=== PATIENT | male | born 1950 | race Caucasian/White ===

== ENCOUNTER 2019-07-17 20:13 | Inpatient (IN) | payer MEDICARE ==
[~2019-07-17] VITALS: Ht 172.7 cm; Wt 98.0 kg
[~2019-07-17 20:13] MED LIST: ASPIR 8181 MG PO; ATORVASTATIN CA20 MG PO; DIAZEPAM5 MG PO; DILTIAZEM 24HR180 MG PO; DIPYRIDAMOLE25 MG PO; FOLIC ACID1 MG PO; Levaquin PO; PANTOPRAZOLE SO40 MG PO; PRESERVISION A1 EACH PO; QUINAPRIL HCL20 MG PO; RESTASIS1 EACH OP; SYMBICORT 16010.2 GM; tylenol 4 PO
[2019-07-17] MEDS ORDERED: ACETAMINOPHEN 325 MG TAB PO ONE (20:45)
[2019-07-17] MEDS ORDERED: ALBUTEROL SULFATE HFA 8GM INHALATION AEROSOL INH PRN (20:45)
[2019-07-17] MEDS ORDERED: PIPER-TAZ 3.375 GM 50 ML IV ONE (20:45)
[2019-07-17 21:20] LABS: BASOPHILS # (AUTO) 0.1 (0.0-0.1); BASOPHILS % 0.6 % (0.0-1.0); EOSINOPHILS # (AUTO) 0.9 (0.0-0.4); EOSINOPHILS % 6.5 % (0.0-6.0); HEMATOCRIT 44.1 % (38.2-49.6); HEMOGLOBIN 15.4 g/dL (14.0-18.0); LYMPHOCYTES # (AUTO) 2.4 (1.0-3.2); LYMPHOCYTES % 16.6 % (18.0-39.1); MEAN CORPUSCULAR HEMOGLOBIN 32.4 pg (28-32); MEAN CORPUSCULAR HGB CONC 34.9 g/dL (31-35); MEAN CORPUSCULAR VOLUME 92.8 fL (81-99); MONOCYTES # (AUTO) 1.2 (0.2-0.8); MONOCYTES % 8.5 % (4.4-11.3); NEUTROPHILS # (AUTO) 9.6 (2.1-6.9); NEUTROPHILS % 66.8 % (38.7-80.0); PLATELET COUNT 336 x10e3/uL (140-360); RED BLOOD COUNT 4.75 x10e6/uL (4.3-5.7)
[2019-07-17 21:28] LABS: INR 0.93
[2019-07-17 21:29] LABS: PARTIAL THROMBOPLASTIN TIME 31.5 seconds (23.8-35.5)
[2019-07-17 21:39] LABS: ALANINE AMINOTRANSFERASE 37 IU/L (0-55); ALBUMIN 4.1 g/dL (3.5-5.0); ALBUMIN/GLOBULIN RATIO 1.1 (0.8-2.0); ALKALINE PHOSPHATASE 104 IU/L (40-150); ANION GAP 14.4 mmol/L (8-16); BLOOD UREA NITROGEN 7 mg/dL (7-26); BUN/CREATININE RATIO 8 (6-25); CALCIUM 9.5 mg/dL (8.4-10.2); CARBON DIOXIDE 23 mmol/L (22-29); CHLORIDE 95 mmol/L (98-107); CREATINE KINASE 598 IU/L (30-200); CREATININE, SERUM 0.89 mg/dL (0.72-1.25); EST GLOMERULAR FILTRATION RATE > 60 ML/MIN (60-); GLUCOSE 119 mg/dL (74-118); POTASSIUM 3.4 mmol/L (3.5-5.1); SODIUM 129 mmol/L (136-145)
[2019-07-17 21:48] LABS: B-TYPE NATRIURETIC PEPTIDE2 19.1 pg/mL (0-100)
[2019-07-17] MEDS ORDERED: ALBUTEROL/IPRATROPIUM 3 ML NEB NEB ONE ×2 (22:30→23:30)
--- NOTE | 2019-07-17 22:30 | NUR ---
PT TO BE ADMITTED, PT AWARE OF POC, PT VOICES NO COMPLAINTS AT THIS TIME
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
[2019-07-17] MEDS ORDERED: SODIUM CHLORIDE 0.9% 1000ML 1,000 ML IV SCH (23:26)
[2019-07-17] MEDS: ALBUTEROL/IPRATROPIUM 3 ML NEB NEB SCH (23:30)
[2019-07-18] VITALS (8 sets, daily range): BP systolic 122–172; BP diastolic 64–106
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
[2019-07-18] MEDS ORDERED: ALBUTEROL/IPRATROPIUM 3 ML NEB NEB STA (00:03)
[2019-07-18] MEDS: METHYLPREDNISOLONE SOD SUCC 40 MG/ML VIAL 1ML IV SCH ×2 (00:26→05:57)
[2019-07-18] MEDS ORDERED: MORPHINE SULFATE INJ 4 MG/ML INJ 1ML IV PRN (00:30)
[2019-07-18] MEDS ORDERED: ONDANSETRON HCL INJ 2MG/ML 2ML 2 MG/ML VIAL IV PRN ×2 (00:30→09:30)
[2019-07-18] MEDS: BENZONATATE 100 MG CAP PO PRN ×3 (01:45→21:35)
[2019-07-18] MEDS: ALBUTEROL/IPRATROPIUM 3 ML NEB NEB SCH ×2 (03:13→08:00)
[2019-07-18] MEDS ORDERED: MELATONIN3 MG PO (03:45)
[2019-07-18] MEDS ORDERED: OMEPRAZOLE40 MG PO (03:45)
[2019-07-18] MEDS ORDERED: RESTASIS1 EACH (03:45)
[2019-07-18] MEDS ORDERED: MENS ONE A DAY PO (03:45)
[2019-07-18] MEDS ORDERED: AMLODIPINE BESY10 MG PO (03:45)
[2019-07-18] MEDS ORDERED: PROAIR HFA INH8.5 GM (03:45)
[2019-07-18] MEDS ORDERED: CLARITON D PO (03:45)
[2019-07-18] MEDS ORDERED: ALEVE PM CAPLE1 EACH PO (03:45)
[2019-07-18] MEDS ORDERED: VALACYCLOVIR1000 MG (03:45)
[2019-07-18] MEDS ORDERED: GLYCOPYRROLATE2 MG (03:45)
[2019-07-18] MEDS ORDERED: FOLIC ACID PO (03:45)
--- NOTE | 2019-07-18 07:19 | NUR ---
PATIENT IN BED RESTING WITH HEAD OF BED ELEVATED, NO DISTRESS OBSERVED. O2 IN PLACE VIA N/C. BED IN LOWER POSITION, CALL LIGHT AT REACH.
[2019-07-18 07:31] LABS: BASOPHILS % 0.3 % (0.0-1.0); EOSINOPHILS % 0.3 % (0.0-6.0); HEMATOCRIT 43.6 % (38.2-49.6); HEMOGLOBIN 14.9 g/dL (14.0-18.0); LYMPHOCYTES # (AUTO) 0.8 (1.0-3.2); LYMPHOCYTES % 6.4 % (18.0-39.1); MEAN CORPUSCULAR HEMOGLOBIN 32.2 pg (28-32); MEAN CORPUSCULAR HGB CONC 34.2 g/dL (31-35); MEAN CORPUSCULAR VOLUME 94.2 fL (81-99); MONOCYTES # (AUTO) 0.1 (0.2-0.8); MONOCYTES % 0.9 % (4.4-11.3); NEUTROPHILS # (AUTO) 10.9 (2.1-6.9); NEUTROPHILS % 90.9 % (38.7-80.0); PLATELET COUNT 323 x10e3/uL (140-360); RED BLOOD COUNT 4.63 x10e6/uL (4.3-5.7); RED CELL DISTRIBUTION WIDTH 13.1 % (11.7-14.4)
[2019-07-18 07:58] LABS: ALANINE AMINOTRANSFERASE 34 IU/L (0-55); ALBUMIN/GLOBULIN RATIO 1.1 (0.8-2.0); ALKALINE PHOSPHATASE 99 IU/L (40-150); BLOOD UREA NITROGEN 8 mg/dL (7-26); BUN/CREATININE RATIO 8 (6-25); CALCIUM 9.2 mg/dL (8.4-10.2); CARBON DIOXIDE 25 mmol/L (22-29); CHLORIDE 94 mmol/L (98-107); CREATININE, SERUM 1.03 mg/dL (0.72-1.25); EST GLOMERULAR FILTRATION RATE > 60 ML/MIN (60-); GLUCOSE 160 mg/dL (74-118); SODIUM 131 mmol/L (136-145)
--- NOTE | 2019-07-18 07:59 | NUR ---
SPOKE WITH MD REGARDING ABNORMAL LAB RESULT, NO NEW ORDER RECEIVED.
--- NOTE | 2019-07-18 08:59 | Diagnostic Imaging Report ---
Chest, one view History: Bronchitis Comparison: none Findings: Calcified granuloma within the left lower lobe is consistent with previous granulomatous disease. The lungs are otherwise clear. Normal size heart. No pleural effusion or pneumothorax. Impression: No acute findings in the chest Signed by: Bobby Koch MD on 07/18/2019 8:55 AM
[2019-07-18] MEDS ORDERED: IPRATROPIUM BROMIDE 0.02% 2.5 ML NEB NEB SCH (09:15)
[2019-07-18] MEDS: LACTATED RINGER'S 1,000 ML IV SCH ×3 (10:46→19:15)
[2019-07-18] MEDS ORDERED: LACTATED RINGER'S 500 ML IV ONE (13:45)
[2019-07-18] MEDS ORDERED: ALBUTEROL SULFATE HFA 8GM INHALATION AEROSOL INH PRN (14:00)
[2019-07-18] MEDS ORDERED: IPRATROPIUM BROMIDE 0.02% 2.5 ML NEB NEB PRN (14:15)
[2019-07-18] MEDS ORDERED: ALBUTEROL SULF 0.083% NEB SOLN 3 ML NEB NEB PRN (14:15)
[2019-07-18] MEDS ORDERED: PANTOPRAZOLE 40 MG 10ML VIAL IV ONE (14:30)
--- NOTE | 2019-07-18 14:45 | Consultation ---
DATE OF CONSULTATION: Pulmonary Critical Care Consultation CHIEF COMPLAINT: Coughing and wheezing. HISTORY OF PRESENT ILLNESS: The patient is a 68-year-old man. He reports intermittent wheezing and coughing for several months. He went to see his doctor on several occasions and received antibiotics along with steroids with no improvement. He has also received Tessalon Perles and cough syrup with codeine, but has not had any improvement. The patient now complains of worsening dyspnea and wheezing. He notes persistent nonproductive cough. He denies chest pain or fevers. He has severe gastroesophageal reflux and reports heartburn that is partially controlled with omeprazole once a day. PAST MEDICAL HISTORY: 1. Gastroesophageal reflux. 2. Hypercholesterolemia. 3. No prior history of asthma or COPD. 4. No prior history of cardiac disease. 5. No prior history of diabetes. PAST SURGICAL HISTORY: Noncontributory. ALLERGIES: NO KNOWN DRUG ALLERGIES. SOCIAL HISTORY: The patient has never been a smoker. He is not a drinker. 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 FAMILY HISTORY: Family history is noncontributory. REVIEW OF SYSTEMS: There is no headache or fever. He is not having any neck pain. He does note some cough. He has wheezing and dyspnea. He has no chest pain. He has no abdominal pain. He is not having any nausea or vomiting. He has no leg edema. PHYSICAL EXAMINATION: VITAL SIGNS: The patient is afebrile. The blood pressure is 151/94 and the saturation is 95% on 3 L. The pulse is 120 and the respiratory rate is 22. HEENT: Shows no facial swelling or erythema. CARDIAC: Reveals regular rate and rhythm with normal S1, S2. LUNGS: Auscultation of lungs reveals a prolonged expiratory phase bilaterally. There is wheezing. There are some crackles at the bases. There is no rebound or guarding. EXTREMITIES: Show no leg edema or calf tenderness. There is no cyanosis or clubbing. SKIN: Shows no rashes. NEUROLOGICAL: Shows no focal abnormalities. RADIOGRAPHIC DATA: CT scan of the chest shows some bronchial inflammation suggestive of bronchitis. There is some coronary artery calcification. LABORATORY DATA: PT and PTT are within normal limits. The BUN to creatinine ratio is 8 to 1.03. The sodium is 131 and the chloride is 94. The white blood cell count is 11.9 and hemoglobin is 14.8. The platelet count is 323. IMPRESSION: 1. Acute bronchitis with coughing and wheezing. 2. Gastroesophageal reflux. 3. Hyponatremia. 4. Coronary artery disease. PLAN: 1. Continue IV antibiotics. 2. IV Solu-Medrol. 3. Bronchodilators. 4. Echocardiogram and Cardiology evaluation. 5. Control gastroesophageal reflux, which could be aggravating coughing and wheezing. Vega Khoury MD [facility]/MODL /[id number]
[2019-07-18] MEDS: METHYLPREDNISOLONE SOD SUCC 125 MG/2ML VIAL IV SCH ×2 (15:00→21:29)
--- NOTE | 2019-07-18 15:02 | NUR ---
MD IN TO SEE PATIENT, NEW ORDER RECEIVED.
[2019-07-18 16:46] LABS: CHOL/HDL RATIO 2.1 (3.9-4.7)
[2019-07-18] MEDS ORDERED: ACETAMINOPHEN 325 MG TAB PO PRN (17:00)
[2019-07-18] MEDS ORDERED: ENOXAPARIN SOD INJ 40 MG/0.4 ML SYR SC SCH (17:00)
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
[2019-07-18] MEDS: FAMOTIDINE 20 MG/2 ML VIAL IV SCH (17:28)
--- NOTE | 2019-07-18 20:03 | NUR ---
Received change of shift report from AM nurse. Walking rounds completed.
[2019-07-18] MEDS ORDERED: ATORVASTATIN 40 MG TAB PO SCH (21:00)
[2019-07-18] MEDS: MELATONIN 3 MG TAB PO SCH (21:00)
[2019-07-18] MEDS ORDERED: ATORVASTATIN 20 MG TAB PO SCH (21:00)
[2019-07-19] VITALS (9 sets, daily range): BP systolic 133–161; BP diastolic 80–99
[2019-07-19] MEDS: LACTATED RINGER'S 1,000 ML IV SCH ×3 (00:15→09:36)
[2019-07-19] MEDS: METHYLPREDNISOLONE SOD SUCC 125 MG/2ML VIAL IV SCH ×3 (06:00→21:25)
[2019-07-19 06:50] LABS: BASOPHILS % 0.3 % (0.0-1.0); HEMATOCRIT 36.8 % (38.2-49.6); HEMOGLOBIN 12.8 g/dL (14.0-18.0); LYMPHOCYTES # (AUTO) 0.9 (1.0-3.2); LYMPHOCYTES % 8.3 % (18.0-39.1); MEAN CORPUSCULAR HEMOGLOBIN 32.1 pg (28-32); MEAN CORPUSCULAR HGB CONC 34.8 g/dL (31-35); MEAN CORPUSCULAR VOLUME 92.2 fL (81-99); MONOCYTES # (AUTO) 0.6 (0.2-0.8); MONOCYTES % 5.4 % (4.4-11.3); NEUTROPHILS # (AUTO) 9.6 (2.1-6.9); NEUTROPHILS % 84.7 % (38.7-80.0); PLATELET COUNT 292 x10e3/uL (140-360); RED BLOOD COUNT 3.99 x10e6/uL (4.3-5.7); RED CELL DISTRIBUTION WIDTH 13.1 % (11.7-14.4)
--- NOTE | 2019-07-19 07:00 | NUR ---
Bed side rounds completed with the off-going nursr and the pt. denies pain or discomfort.
[2019-07-19] MEDS ORDERED: PANTOPRAZOLE SOD 40 MG TABEC PO SCH (07:30)
[2019-07-19 07:59] LABS: ANION GAP 14.6 mmol/L (8-16); BLOOD UREA NITROGEN 9 mg/dL (7-26); BUN/CREATININE RATIO 12 (6-25); CARBON DIOXIDE 24 mmol/L (22-29); CHLORIDE 99 mmol/L (98-107); CREATININE, SERUM 0.78 mg/dL (0.72-1.25); EST GLOMERULAR FILTRATION RATE > 60 ML/MIN (60-); GLUCOSE 137 mg/dL (74-118); POTASSIUM 3.6 mmol/L (3.5-5.1); SODIUM 134 mmol/L (136-145)
[2019-07-19] MEDS: FAMOTIDINE 20 MG/2 ML VIAL IV SCH ×2 (09:36→16:15)
[2019-07-19] MEDS: ASPIRIN 81 MG CHEW TAB PO SCH (09:36)
[2019-07-19] MEDS: AMLODIPINE BESYLATE 10 MG TAB PO SCH (09:36)
[2019-07-19] MEDS ORDERED: ALBUTEROL SULFATE HFA 8GM INHALATION AEROSOL INH PRN (14:00)
--- NOTE | 2019-07-19 14:14 | Progress Note ---
DATE: SUBJECTIVE: The patient still has some cough. He has less wheezing. He is not complaining of fever. PHYSICAL EXAMINATION: VITAL SIGNS: The patient is afebrile. The blood pressure is 147/93. Saturation is 95% on 2 L. The pulse is 110. HEENT: Shows no facial swelling or erythema. CARDIAC: Reveals regular rate and rhythm with normal S1, S2. LUNGS: Auscultation of lungs reveals prolonged expiratory phase, wheezing bilaterally. ABDOMEN: Soft, nontender. There is no rebound or guarding. EXTREMITIES: Shows no leg edema or calf tenderness. There is no cyanosis or clubbing. SKIN: Shows no rashes. NEUROLOGICAL: Shows no focal abnormalities. IMPRESSION: 1. Chronic bronchitis with coughing and acute exacerbation. 2. Gastroesophageal reflux. 3. Coronary artery disease. PLAN: 1. Continue IV Solu-Medrol. 2. Continue Protonix along with Pepcid for GE reflux. 3. Consider GI evaluation. 4. Await completion of echocardiogram. Vega Khoury MD [facility]/MODL /[id number]
[2019-07-19] MEDS ORDERED: MAGNESIUM SULFATE 2GM/50ML 50 ML IV ONE (15:30)
--- NOTE | 2019-07-19 15:30 | NUR ---
Dr. Farrar rounded and the pt. was ordered bedside inhaler as well as magnesium.
[2019-07-19] MEDS: PANTOPRAZOLE SOD 40 MG TABEC PO SCH (16:14)
[2019-07-19] MEDS: MELATONIN 3 MG TAB PO SCH (21:25)
--- NOTE | 2019-07-19 21:25 | NUR ---
PATIENT IS RESTING IN RECLINER AOX4, NO SIGNS OF DISTRESS NOTED. PATIENT VOICES THAT HE IS BREATHING BETTER AND ALSO VOICES NO PAIN AT THIS TIME. PATIENT BREATHING ON HIS OWN WITH AN O2 SAT OF 94, CALL LIGHT IS WITHIN EASY REACH, WILL CONTINUE TO MONITOR.
[2019-07-20] VITALS: BP 158/83
[2019-07-20 04:00] VITALS: BP 158/90
[2019-07-20] MEDS: METHYLPREDNISOLONE SOD SUCC 125 MG/2ML VIAL IV SCH ×2 (06:15→14:12)
[2019-07-20 06:17] LABS: BASOPHILS % 0.2 % (0.0-1.0); HEMOGLOBIN 13.3 g/dL (14.0-18.0); LYMPHOCYTES # (AUTO) 1.1 (1.0-3.2); LYMPHOCYTES % 9.1 % (18.0-39.1); MEAN CORPUSCULAR HEMOGLOBIN 31.8 pg (28-32); MEAN CORPUSCULAR HGB CONC 34.1 g/dL (31-35); MEAN CORPUSCULAR VOLUME 93.3 fL (81-99); MONOCYTES # (AUTO) 0.7 (0.2-0.8); MONOCYTES % 5.6 % (4.4-11.3); NEUTROPHILS % 83.4 % (38.7-80.0); PLATELET COUNT 291 x10e3/uL (140-360); RED BLOOD COUNT 4.18 x10e6/uL (4.3-5.7); RED CELL DISTRIBUTION WIDTH 13.4 % (11.7-14.4)
[2019-07-20 06:42] LABS: ANION GAP 16.4 mmol/L (8-16); BLOOD UREA NITROGEN 9 mg/dL (7-26); BUN/CREATININE RATIO 11 (6-25); CALCIUM 9.4 mg/dL (8.4-10.2); CARBON DIOXIDE 24 mmol/L (22-29); CHLORIDE 96 mmol/L (98-107); CREATINE KINASE 1254 IU/L (30-200); CREATININE, SERUM 0.82 mg/dL (0.72-1.25); EST GLOMERULAR FILTRATION RATE > 60 ML/MIN (60-); GLUCOSE 116 mg/dL (74-118); POTASSIUM 3.4 mmol/L (3.5-5.1); SODIUM 133 mmol/L (136-145)
--- NOTE | 2019-07-20 07:07 | Diagnostic Imaging Report ---
EXAMINATION: CHEST SINGLE (PORTABLE) COMPARISON: Chest x-ray 07/18/2019, CT chest 07/17/2019 INDICATION: Shortness of breath, wheezing ^BRONCHITIS ^[id number] ^0635 DISCUSSION: Frontal view of the chest obtained at 0635 hours. HEART AND MEDIASTINUM: The cardiomediastinal silhouette is unremarkable. LINES: None. LUNGS: Mildly diminished lung volumes volumes with trace left basilar atelectasis. Calcified granuloma in the inferior aspect of the left lower lobe measures 7 mm. No significant bronchial wall thickening. Vascular markings are normal. PLEURA: No pleural effusion or pneumothorax. BONES AND SOFT TISSUES: No focal osseous lesion. The soft tissues are normal. IMPRESSION: Trace left basilar atelectasis. No infiltrates. Signed by: Dr. Evangelina Pimentel MD on 07/20/2019 7:04 AM
[2019-07-20 08:00] VITALS: BP 164/95
[2019-07-20 08:09] VITALS: BP 164/95
[2019-07-20] MEDS: FAMOTIDINE 20 MG/2 ML VIAL IV SCH (09:58)
[2019-07-20] MEDS: ASPIRIN 81 MG CHEW TAB PO SCH (09:58)
[2019-07-20] MEDS: PANTOPRAZOLE SOD 40 MG TABEC PO SCH (09:58)
[2019-07-20] MEDS: AMLODIPINE BESYLATE 10 MG TAB PO SCH (09:58)
[2019-07-20] MEDS ORDERED: POTASSIUM CHLORIDE 20 MEQ TAB CR PO ONE (10:35)
--- NOTE | 2019-07-20 10:35 | NUR ---
Pt. expressed no spiritual or emotional concerns at this time. Bridge Game Director provided hospitality and information on how to reach dispatch clerk, if needed. No need to follow at this time. JOHN ZAMUDIO Bridge Game Director Spiritual Care Department O: [phone]
[2019-07-20 12:42] VITALS: BP 118/59
[2019-07-20 12:49] VITALS: BP 149/87
--- NOTE | 2019-07-20 14:18 | Progress Note ---
DATE: SUBJECTIVE: The patient is feeling better. He has less dyspnea and less cough. He has less wheezing. PHYSICAL EXAMINATION: VITAL SIGNS: The patient is afebrile. Blood pressure is 145/97, pulse is 108. HEENT: Shows no facial swelling or erythema. CARDIAC: Reveals regular rate and rhythm with normal S1, S2. There are no murmurs or rubs. LUNGS: Auscultation of lungs reveals rhonchorous breath sounds bilaterally. There is no wheezing. ABDOMEN: Soft and nontender. There is no rebound or guarding. EXTREMITIES: Show no leg edema or calf tenderness. There is no cyanosis or clubbing. SKIN: Shows no rashes. NEUROLOGICAL: Shows no focal abnormalities. IMPRESSION: 1. Gastroesophageal reflux with coughing and wheezing. 2. Chronic bronchitis with acute exacerbation. 3. Coronary artery disease. PLAN: 1. Discharge home. 2. Anti-reflux regimen. 3. Gastroesophageal reflux precautions. 4. Taper steroids. 5. Inhalers as needed. 6. Follow up with Karyn Smith. MD TITI Hartley/MAURICIO /[id number]
--- NOTE | 2019-07-20 14:20 | NUR ---
Pt discharged home at this time. Pt is aox4 and able to verbalize needs. Denies any pain at this time. 0 s/s of acute distress noted. Pt verbalized understanding of all discharge instructions and follow up appointments.
[2019-07-20] MEDS ORDERED: ATORVASTATIN 20 MG TAB PO SCH (21:00)
--- NOTE | 2019-07-20 21:00 | Discharge Summary ---
PRIMARY CARE DOCTOR: Dr. Courtney FINAL DIAGNOSIS: Severe bronchospasm with tachycardia. SECONDARY DIAGNOSES: 1. Mild systolic congestive heart failure stable compensated. 2. Mild rhabdomyolysis without kidney injury. 3. Hypertension. 4. Dehydration. CONSULTANTS: 1. Dr. Khoury, Pulmonary. 2. Dr. Waller, Cardiology. PROCEDURES/STUDIES PERFORMED: 1. Echocardiogram. 2. Chest CT which is consistent with bronchitis. HISTORY: Per [facility] HOSPITAL COURSE: The patient was admitted. It took a couple of days to finally correct severe bronchospasm. His tachycardia is slowly getting better as well. The patient was on scheduled steroids. He has probably a component of GERD as well. The patient was told to increase his PPI to twice a day. The patient was seen and examined today. The patient will go home with a Medrol Dosepak. He will follow up with his primary care doctor in one week. It took 32 minutes total to discharge this patient. CONDITION ON DISCHARGE: Improved. DISCHARGE MEDICATIONS: Please see medication reconciliation form. MD CASTILLO Leigh/MAURICIO /[id number] MTDEster
== END 2019-07-20 15:00 | disposition home or self-care (01) | DRG 202 ==
LOC: ER 20:13 → ERHOLD 23:57 → MED/SURG3 07-18 00:55 → OBSVTOIN 07-19 16:04
PROVIDERS: ADMIT Internal Medicine; ATTEND Internal Medicine
DX: J20.9 Acute bronchitis, unspecified (principal); M62.82 Rhabdomyolysis; E87.1 Hypo-osmolality and hyponatremia; I50.20 Unspecified systolic (congestive) heart failure; I50.22 Chronic systolic (congestive) heart failure; K21.9 Gastro-esophageal reflux disease without esophagitis; I11.0 Hypertensive heart disease with heart failure; J30.2 Other seasonal allergic rhinitis; E78.5 Hyperlipidemia, unspecified; Z68.32 Body mass index [BMI] 32.0-32.9, adult
CPT/HCPCS: 36415; 71045; 71250; 80048; 80053; 80061; 82550; 82553; 83036; 83605; 83880; 84443; 84484; 85025; 85610; 85730; 87040; 87400; 93005; 93306; 94640; 99284; G0378; J1650; J2270; J2405; J2543; J2920; J2930; J3475; J7030; J7120; J7121

== ENCOUNTER 2021-01-10 11:14 | Inpatient (IN) | payer MEDICARE ==
[~2021-01-10] VITALS: Ht 172.7 cm; Wt 97.5 kg
[~2021-01-10 11:14] MED LIST changes: +ALEVE PM CAPLE1 EACH PO; +AMLODIPINE BESY10 MG PO; +CLARITON D PO; +FOLIC ACID PO; +GLYCOPYRROLATE2 MG; +MELATONIN3 MG PO; +MENS ONE A DAY PO; +OMEPRAZOLE40 MG PO; +PROAIR HFA INH8.5 GM; +RESTASIS1 EACH; +VALACYCLOVIR1000 MG
[2021-01-10] MEDS ORDERED: ASPIRIN 81 MG CHEW TAB PO STA (11:44)
[2021-01-10] MEDS ORDERED: SODIUM CHLORIDE 0.9% 500ML 500 ML IV STA (11:46)
[2021-01-10] MEDS ORDERED: ONDANSETRON HCL INJ 2MG/ML 2ML 2 MG/ML VIAL IV STA ×2 (11:47→14:53)
[2021-01-10 11:57] LABS: BASOPHILS % 0.2 % (0.0-1.0); EOSINOPHILS % 0.1 % (0.0-6.0); HEMATOCRIT 42.2 % (38.2-49.6); HEMOGLOBIN 15.5 g/dL (14.0-18.0); LYMPHOCYTES # (AUTO) 1.5 (1.0-3.2); LYMPHOCYTES % 11.3 % (18.0-39.1); MEAN CORPUSCULAR HEMOGLOBIN 31.4 pg (28-32); MEAN CORPUSCULAR HGB CONC 36.7 g/dL (31-35); MEAN CORPUSCULAR VOLUME 85.6 fL (81-99); MONOCYTES % 7.4 % (4.4-11.3); NEUTROPHILS # (AUTO) 10.3 (2.1-6.9); PLATELET COUNT 401 x10e3/uL (140-360); RED BLOOD COUNT 4.93 x10e6/uL (4.3-5.7); RED CELL DISTRIBUTION WIDTH 12.8 % (11.7-14.4)
[2021-01-10 12:07] LABS: INR 0.94; PROTHROMBIN TIME 12.8 seconds (11.9-14.5)
[2021-01-10 12:08] LABS: PARTIAL THROMBOPLASTIN TIME 33.2 seconds (23.8-35.5)
[2021-01-10 12:19] LABS: ALBUMIN 4.4 g/dL (3.5-5.0); ALBUMIN/GLOBULIN RATIO 1.1 (0.8-2.0); ANION GAP 22.2 mmol/L (8-16); CALCIUM 9.7 mg/dL (8.4-10.2); CREATININE, SERUM 0.81 mg/dL (0.72-1.25)
[2021-01-10 12:23] LABS: POTASSIUM 2.2 mmol/L (3.5-5.1)
[2021-01-10] MEDS ORDERED: POTASSIUM CHLORIDE 10MEQ EA PO ONE (12:30)
[2021-01-10] MEDS ORDERED: SODIUM CHLORIDE 0.9% 50ML 50 ML ONE (13:14)
[2021-01-10] MEDS ORDERED: IOPAMIDOL 370 MG/ML 200 ML INFUS..BTL INJ ONE (13:14)
[2021-01-10 13:20] LABS: MAGNESIUM 1.3 MG/DL (1.3-2.1); PHOSPHORUS 4.2 MG/DL (2.3-4.7)
[2021-01-10] MEDS ORDERED: SODIUM CHLORIDE 452MG TAB PO ONE (14:00)
[2021-01-10 15:22] LABS: CLARITY,URINE CLEAR (CLEAR); COLOR,URINE YELLOW (YELLOW); KETONES,URINE 1+ (NEGATIVE); LEUKOCYTE ESTERASE ,URINE NEGATIVE (NEGATIVE); NITRITE,URINE NEGATIVE (NEGATIVE); PROTEIN,URINE DIPSTICK 1+ (NEGATIVE)
[2021-01-10 15:23] LABS: URINE UROBILINOGEN 0.2 mg/dL (0.2 - 1)
[2021-01-10 15:34] LABS: BACTERIA,URINE FEW /HPF; HYALINE CASTS 0-1 (0-1)
[2021-01-10 19:14] LABS: CREATINE KINASE MB 5.7 ng/mL (0-5.0)
[2021-01-10 20:00] VITALS: BP 145/93
[2021-01-10] MEDS ORDERED: ACETAMINOPHEN 325 MG TAB PO PRN (20:30)
[2021-01-10] MEDS ORDERED: ONDANSETRON HCL INJ 2MG/ML 2ML 2 MG/ML VIAL IV PRN (20:30)
[2021-01-10] MEDS ORDERED: SODIUM CHLORIDE 0.9% 1000ML 1,000 ML IV SCH (20:30)
[2021-01-10] MEDS: NON-FORMULARY MEDICATION (Cyclosporine (Restasis) 1 DROP) OU SCH (22:45)
[2021-01-10] MEDS ORDERED: POTASSIUM CHLORIDE 20MEQ/100ML 100 ML IV PRN (22:45)
[2021-01-10] MEDS ORDERED: HYDRALAZINE HCL 20 MG/ML VIAL IV PRN (22:45)
[2021-01-10] MEDS ORDERED: AMLODIPINE BESYLATE 10 MG TAB PO ONE (22:45)
[2021-01-10] MEDS ORDERED: MAGNESIUM SULFATE 2GM/50ML IV ONE (22:45)
[2021-01-10] MEDS ORDERED: MELATONIN 5 MG TABLET PO PRN (23:00)
[2021-01-10] MEDS ORDERED: ALBUTEROL/IPRATROPIUM 3 ML NEB NEB PRN (23:00)
[2021-01-11] VITALS (9 sets, daily range): BP systolic 123–148; BP diastolic 74–96
[2021-01-11 05:03] LABS: BASOPHILS % 0.2 % (0.0-1.0); EOSINOPHILS # (AUTO) 0.1 (0.0-0.4); EOSINOPHILS % 0.5 % (0.0-6.0); HEMATOCRIT 36.6 % (38.2-49.6); HEMOGLOBIN 13.7 g/dL (14.0-18.0); LYMPHOCYTES # (AUTO) 1.6 (1.0-3.2); LYMPHOCYTES % 13.5 % (18.0-39.1); MEAN CORPUSCULAR HEMOGLOBIN 31.7 pg (28-32); MEAN CORPUSCULAR HGB CONC 37.4 g/dL (31-35); MEAN CORPUSCULAR VOLUME 84.7 fL (81-99); MONOCYTES # (AUTO) 1.4 (0.2-0.8); MONOCYTES % 11.7 % (4.4-11.3); NEUTROPHILS # (AUTO) 8.5 (2.1-6.9); NEUTROPHILS % 73.3 % (38.7-80.0); PLATELET COUNT 311 x10e3/uL (140-360); RED BLOOD COUNT 4.32 x10e6/uL (4.3-5.7)
[2021-01-11 05:21] LABS: MAGNESIUM 1.4 MG/DL (1.3-2.1); PHOSPHORUS 3.1 MG/DL (2.3-4.7)
[2021-01-11 06:08] LABS: ANION GAP 19.2 mmol/L (8-16); CALCIUM 8.8 mg/dL (8.4-10.2); CREATININE, SERUM 0.72 mg/dL (0.72-1.25)
[2021-01-11] MEDS ORDERED: MAGNESIUM SULFATE 2GM/50ML 50 ML IV ONE (06:15)
[2021-01-11 06:17] LABS: POTASSIUM 2.2 mmol/L (3.5-5.1)
[2021-01-11] MEDS: KCL 20MEQ/.9 SOD CHL 1,000 ML IV SCH ×2 (06:25→08:15)
[2021-01-11] MEDS: AMLODIPINE BESYLATE 10 MG TAB PO SCH (06:26)
[2021-01-11 07:17] LABS: CREATINE KINASE MB 6.5 ng/mL (0-5.0)
[2021-01-11] MEDS ORDERED: POTASSIUM CHLORIDE 20MEQ/100ML 100 ML IV PRN (08:00)
[2021-01-11] MEDS: ASPIRIN 81 MG CHEW TAB PO SCH (08:15)
[2021-01-11] MEDS ORDERED: POTASSIUM CHLORIDE 10MEQ EA PO ONE ×2 (08:45→16:45)
[2021-01-11 09:27] LABS: OSMOLALITY,SERUM 237 mOsm/kg (278-305)
[2021-01-11 09:40] LABS: BLOOD UREA NITROGEN 7 mg/dL (7-26); GLUCOSE 106 mg/dL (74-118); SODIUM 118 mmol/L (136-145)
[2021-01-11] MEDS ORDERED: KCL 40MEQ/0.9% SOD CHL 1,000 ML IV SCH (09:45)
[2021-01-11] MEDS: NON-FORMULARY MEDICATION (Cyclosporine (Restasis) 1 DROP) OU SCH ×2 (10:53→22:45)
[2021-01-11] MEDS: CEFTRIAXONE 1 GM in SODIUM CHLORIDE 0.9% 50ML 50 ML IV SCH (10:53)
[2021-01-11] MEDS ORDERED: SODIUM CHLORIDE 452MG TAB PO ONE (12:00)
[2021-01-11] MEDS ORDERED: SODIUM CHLORIDE 1 GM TAB PO ONE ×2 (12:15→16:45)
[2021-01-11 12:54] LABS: CREATINE KINASE MB 7.9 ng/mL (0-5.0)
[2021-01-11 13:59] LABS: CREATININE,URINE RANDOM 20.28 mg/dL (63-166)
[2021-01-11 14:01] LABS: POTASSIUM,URINE 14.6 mmol/L; TOTAL PROTEIN, URINE < 6.8 mg/dL (1-14)
[2021-01-11 16:25] LABS: ANION GAP 17.6 mmol/L (8-16); CALCIUM 8.3 mg/dL (8.4-10.2); CREATININE, SERUM 0.65 mg/dL (0.72-1.25)
[2021-01-11] MEDS: ENOXAPARIN SOD INJ 40 MG/0.4 ML SYR SC SCH (16:30)
[2021-01-11] MEDS: METOCLOPRAMIDE HCL 10 MG TAB PO SCH (16:30)
[2021-01-11 16:32] LABS: POTASSIUM 2.6 mmol/L (3.5-5.1)
[2021-01-11 19:07] LABS: CALCIUM 8.2 mg/dL (8.4-10.2); CREATININE, SERUM 0.71 mg/dL (0.72-1.25)
[2021-01-11] MEDS ORDERED: ZOLPIDEM TARTRATE 5 MG TAB PO PRN (20:15)
[2021-01-11] MEDS ORDERED: MELATONIN 3 MG TAB PO SCH (21:00)
[2021-01-12] VITALS (8 sets, daily range): BP systolic 101–155; BP diastolic 43–80
[2021-01-12 01:17] LABS: ANION GAP 15.6 mmol/L (8-16); CALCIUM 8.5 mg/dL (8.4-10.2); CREATININE, SERUM 0.69 mg/dL (0.72-1.25)
[2021-01-12 01:19] LABS: POTASSIUM 2.6 mmol/L (3.5-5.1)
[2021-01-12] MEDS ORDERED: POTASSIUM CHLORIDE 10MEQ EA PO STA (01:22)
[2021-01-12] MEDS: HYDROCODONE/APAP 5MG-325MG TAB PO PRN ×3 (02:00→18:00)
[2021-01-12 05:45] LABS: BASOPHILS % 0.3 % (0.0-1.0); EOSINOPHILS # (AUTO) 0.1 (0.0-0.4); EOSINOPHILS % 0.6 % (0.0-6.0); HEMATOCRIT 39.2 % (38.2-49.6); HEMOGLOBIN 13.8 g/dL (14.0-18.0); LYMPHOCYTES # (AUTO) 1.3 (1.0-3.2); LYMPHOCYTES % 8.6 % (18.0-39.1); MEAN CORPUSCULAR HEMOGLOBIN 31.1 pg (28-32); MEAN CORPUSCULAR HGB CONC 35.2 g/dL (31-35); MEAN CORPUSCULAR VOLUME 88.3 fL (81-99); MONOCYTES # (AUTO) 1.6 (0.2-0.8); MONOCYTES % 10.6 % (4.4-11.3); NEUTROPHILS # (AUTO) 11.5 (2.1-6.9); NEUTROPHILS % 78.7 % (38.7-80.0); PLATELET COUNT 282 x10e3/uL (140-360); RED BLOOD COUNT 4.44 x10e6/uL (4.3-5.7); RED CELL DISTRIBUTION WIDTH 13.1 % (11.7-14.4)
[2021-01-12] MEDS: AMLODIPINE BESYLATE 10 MG TAB PO SCH (05:51)
[2021-01-12 06:15] LABS: MAGNESIUM 1.9 MG/DL (1.3-2.1); PHOSPHORUS 2.5 MG/DL (2.3-4.7)
[2021-01-12 06:30] LABS: ANION GAP 14.8 mmol/L (8-16); CALCIUM 8.6 mg/dL (8.4-10.2); CREATININE, SERUM 0.7 mg/dL (0.72-1.25)
[2021-01-12 06:35] LABS: POTASSIUM 2.8 mmol/L (3.5-5.1)
[2021-01-12] MEDS ORDERED: POTASSIUM CHLORIDE 10MEQ EA PO ONE (06:45)
[2021-01-12] MEDS: CEFTRIAXONE 1 GM in SODIUM CHLORIDE 0.9% 50ML 50 ML IV SCH (08:45)
[2021-01-12] MEDS: ASPIRIN 81 MG CHEW TAB PO SCH (08:45)
[2021-01-12] MEDS: METOCLOPRAMIDE HCL 10 MG TAB PO SCH ×3 (08:45→17:13)
[2021-01-12] MEDS: NON-FORMULARY MEDICATION (Cyclosporine (Restasis) 1 DROP) OU SCH ×2 (10:45→21:11)
[2021-01-12 12:40] LABS: ANION GAP 12.9 mmol/L (8-16); CALCIUM 8.1 mg/dL (8.4-10.2); CREATININE, SERUM 0.66 mg/dL (0.72-1.25)
[2021-01-12 12:51] LABS: POTASSIUM 2.9 mmol/L (3.5-5.1)
[2021-01-12] MEDS ORDERED: POTASSIUM CHLORIDE 20 MEQ TAB CR PO STA ×2 (13:02→21:17)
[2021-01-12] MEDS ORDERED: SODIUM CHLORIDE 1 GM TAB PO ONE (13:15)
[2021-01-12 17:07] LABS: ANION GAP 16.8 mmol/L (8-16); CALCIUM 8.7 mg/dL (8.4-10.2); CREATININE, SERUM 0.71 mg/dL (0.72-1.25); POTASSIUM 3.8 mmol/L (3.5-5.1)
[2021-01-12] MEDS: LOSARTAN POTASSIUM 100 MG TAB PO SCH (17:14)
[2021-01-12] MEDS: ENOXAPARIN SOD INJ 40 MG/0.4 ML SYR SC SCH (17:14)
[2021-01-12] MEDS: POTASSIUM CHLORIDE 10MEQ EA PO ONE ×2 (17:14→17:20)
[2021-01-12] MEDS: CARVEDILOL 3.125 MG TAB PO SCH (17:14)
[2021-01-12 20:33] LABS: CALCIUM 8.2 mg/dL (8.4-10.2); CREATININE, SERUM 0.68 mg/dL (0.72-1.25)
[2021-01-13] VITALS (8 sets, daily range): BP systolic 121–150; BP diastolic 71–95
[2021-01-13 06:51] LABS: BASOPHILS % 0.3 % (0.0-1.0); EOSINOPHILS # (AUTO) 0.1 (0.0-0.4); HEMATOCRIT 37.9 % (38.2-49.6); HEMOGLOBIN 13.3 g/dL (14.0-18.0); LYMPHOCYTES # (AUTO) 1.7 (1.0-3.2); LYMPHOCYTES % 16.1 % (18.0-39.1); MEAN CORPUSCULAR HEMOGLOBIN 31.4 pg (28-32); MEAN CORPUSCULAR HGB CONC 35.1 g/dL (31-35); MEAN CORPUSCULAR VOLUME 89.6 fL (81-99); MONOCYTES # (AUTO) 1.1 (0.2-0.8); MONOCYTES % 10.4 % (4.4-11.3); NEUTROPHILS # (AUTO) 7.3 (2.1-6.9); PLATELET COUNT 277 x10e3/uL (140-360); RED BLOOD COUNT 4.23 x10e6/uL (4.3-5.7); RED CELL DISTRIBUTION WIDTH 13.5 % (11.7-14.4)
[2021-01-13 07:11] LABS: ANION GAP 14.8 mmol/L (8-16); BLOOD UREA NITROGEN < 5 mg/dL (7-26); CALCIUM 8.6 mg/dL (8.4-10.2); CARBON DIOXIDE 24 mmol/L (22-29); CHLORIDE 91 mmol/L (98-107); CREATININE, SERUM 0.59 mg/dL (0.72-1.25); EST GLOMERULAR FILTRATION RATE 135 ML/MIN (60-); GLUCOSE 127 mg/dL (74-118); SODIUM 127 mmol/L (136-145)
[2021-01-13 07:19] LABS: BUN/CREATININE RATIO 8 (6-25)
[2021-01-13 07:20] LABS: POTASSIUM 2.8 mmol/L (3.5-5.1)
[2021-01-13] MEDS ORDERED: POTASSIUM CHLORIDE 20MEQ/100ML 100 ML IV ONE (08:15)
[2021-01-13] MEDS ORDERED: SODIUM CHLORIDE 0.9% 250ML 250 ML ONE (08:56)
[2021-01-13] MEDS: METOCLOPRAMIDE HCL 10 MG TAB PO SCH ×3 (09:32→16:16)
[2021-01-13] MEDS: CEFTRIAXONE 1 GM in SODIUM CHLORIDE 0.9% 50ML 50 ML IV SCH (09:33)
[2021-01-13] MEDS: CARVEDILOL 3.125 MG TAB PO SCH ×2 (09:33→16:17)
[2021-01-13] MEDS: ASPIRIN 81 MG CHEW TAB PO SCH (09:33)
[2021-01-13] MEDS: LOSARTAN POTASSIUM 100 MG TAB PO SCH ×2 (09:34→16:17)
[2021-01-13] MEDS: FOLIC ACID 1 MG TAB PO SCH (09:34)
[2021-01-13] MEDS: HYDROCODONE/APAP 5MG-325MG TAB PO PRN (09:35)
[2021-01-13] MEDS: NON-FORMULARY MEDICATION (Cyclosporine (Restasis) 1 DROP) OU SCH ×2 (10:45→20:49)
[2021-01-13] MEDS ORDERED: POTASSIUM CHLORIDE 20 MEQ TAB CR PO STA (12:42)
[2021-01-13 14:35] LABS: ANION GAP 15.9 mmol/L (8-16); CALCIUM 8.4 mg/dL (8.4-10.2); CREATININE, SERUM 0.68 mg/dL (0.72-1.25); POTASSIUM 3.9 mmol/L (3.5-5.1)
[2021-01-13] MEDS ORDERED: KETOROLAC TROMETHAMINE 30 MG/ML VIAL IV ONE (16:00)
[2021-01-13] MEDS: ENOXAPARIN SOD INJ 40 MG/0.4 ML SYR SC SCH (16:17)
[2021-01-13 21:06] LABS: ANION GAP 12.4 mmol/L (8-16); CALCIUM 8.3 mg/dL (8.4-10.2); CREATININE, SERUM 0.64 mg/dL (0.72-1.25); POTASSIUM 3.4 mmol/L (3.5-5.1)
[2021-01-13] MEDS ORDERED: SODIUM CHLORIDE 1 GM TAB PO ONE (22:00)
[2021-01-14 00:20] VITALS: BP 125/73
[2021-01-14 06:24] VITALS: BP 148/81
[2021-01-14 06:25] LABS: ANION GAP 14.2 mmol/L (8-16); BLOOD UREA NITROGEN < 5 mg/dL (7-26); CALCIUM 8.8 mg/dL (8.4-10.2); CARBON DIOXIDE 23 mmol/L (22-29); CHLORIDE 92 mmol/L (98-107); CREATININE, SERUM 0.63 mg/dL (0.72-1.25); EST GLOMERULAR FILTRATION RATE 125 ML/MIN (60-); GLUCOSE 108 mg/dL (74-118); POTASSIUM 3.2 mmol/L (3.5-5.1); SODIUM 126 mmol/L (136-145)
[2021-01-14 06:37] LABS: BUN/CREATININE RATIO 8 (6-25)
[2021-01-14] MEDS: METOCLOPRAMIDE HCL 10 MG TAB PO SCH ×3 (07:30→16:30)
[2021-01-14] MEDS: HYDROCODONE/APAP 5MG-325MG TAB PO PRN ×2 (07:32→13:40)
[2021-01-14 08:34] VITALS: BP 171/93
[2021-01-14] MEDS: CEFTRIAXONE 1 GM in SODIUM CHLORIDE 0.9% 50ML 50 ML IV SCH (08:39)
[2021-01-14] MEDS: CARVEDILOL 3.125 MG TAB PO SCH (08:39)
[2021-01-14] MEDS: FOLIC ACID 1 MG TAB PO SCH (08:39)
[2021-01-14] MEDS: ASPIRIN 81 MG CHEW TAB PO SCH (08:39)
[2021-01-14] MEDS: LOSARTAN POTASSIUM 100 MG TAB PO SCH (08:40)
[2021-01-14 08:52] VITALS: BP 171/93
[2021-01-14] MEDS ORDERED: POTASSIUM CHLORIDE 10MEQ/100ML 200 ML IV ONE (09:45)
[2021-01-14] MEDS: NON-FORMULARY MEDICATION (Cyclosporine (Restasis) 1 DROP) OU SCH (10:34)
[2021-01-14 12:32] VITALS: BP 152/85
[2021-01-14] MEDS ORDERED: KETOROLAC TROMETHAMINE 30 MG/ML VIAL IV PRN (13:15)
[2021-01-14 13:43] LABS: POTASSIUM,URINE 26.1 mmol/L
[2021-01-14] MEDS ORDERED: SODIUM CHLORIDE 1 GM TAB PO ONE (15:45)
[2021-01-14 16:41] VITALS: BP 145/79
[2021-01-14] MEDS ORDERED: CARVEDILOL 3.125 MG TAB PO SCH (17:00)
[2021-01-14 17:02] LABS: ANION GAP 13.9 mmol/L (8-16); CALCIUM 8.7 mg/dL (8.4-10.2); CREATININE, SERUM 0.65 mg/dL (0.72-1.25); POTASSIUM 3.9 mmol/L (3.5-5.1)
[2021-01-14] MEDS: ENOXAPARIN SOD INJ 40 MG/0.4 ML SYR SC SCH (17:02)
[2021-01-14] MEDS ORDERED: COREG12.5 MG PO ×2 (17:45→18:13)
[2021-01-14] MEDS ORDERED: SODIUM CHLORIDE1 GM PO ×2 (17:45→18:13)
== END 2021-01-14 18:26 | disposition home health service (06) | DRG 641 ==
LOC: ER 11:33 → ERHOLD 17:36 → MED/SURG3 20:01 → OBSVTOIN 22:48
PROVIDERS: ADMIT Internal Medicine; ATTEND Internal Medicine
DX: E87.1 Hypo-osmolality and hyponatremia (principal); E87.6 Hypokalemia; I11.0 Hypertensive heart disease with heart failure; I50.9 Heart failure, unspecified; J44.9 Chronic obstructive pulmonary disease, unspecified; E78.5 Hyperlipidemia, unspecified; K21.9 Gastro-esophageal reflux disease without esophagitis; K52.9 Noninfective gastroenteritis and colitis, unspecified; E66.01 Morbid (severe) obesity due to excess calories; Z68.32 Body mass index [BMI] 32.0-32.9, adult; Z90.49 Acquired absence of other specified parts of digestive tract; T50.2X5A Adverse effect of carbonic-anhydrase inhibitors, benzothiadiazides and other diuretics, initial encounter; Z82.49 Family history of ischemic heart disease and other diseases of the circulatory system; D64.9 Anemia, unspecified; E86.0 Dehydration; E83.42 Hypomagnesemia; E83.51 Hypocalcemia; M25.462 Effusion, left knee; Z20.822 Contact with and (suspected) exposure to COVID-19
CPT/HCPCS: 36415; 71045; 74018; 74177; 80048; 80053; 81001; 82550; 82553; 82570; 82607; 82746; 82947; 83690; 83735; 83880; 83935; 84100; 84133; 84156; 84295; 84300; 84443; 84484; 84520; 84550; 85025; 85610; 85730; 93005; 93306; 99251; 99284; J0696; J1650; J1885; J2405; J3475; J3480; J7030; J7040; J7050; Q9967; U0002

== ENCOUNTER 2022-03-16 11:32 | Inpatient (IN) | payer MEDICARE ==
[~2022-03-16] VITALS: Ht 172.7 cm; Wt 97.5 kg
[~2022-03-16 11:32] MED LIST changes: +COREG12.5 MG PO; +SODIUM CHLORIDE1 GM PO
[2022-03-16] MEDS ORDERED: MULTIVITAMINS- 12 INJECTION 10 ML, FOLIC ACID MDV 1 MG, THIAMINE HCL INJ 100 MG in SODI... IV ONE (11:45)
[2022-03-16 11:58] LABS: BASOPHILS % 0.1 % (0.0-1.0); EOSINOPHILS % 0.1 % (0.0-6.0); HEMATOCRIT 36.1 % (38.2-49.6); LYMPHOCYTES # (AUTO) 1.1 (1.0-3.2); LYMPHOCYTES % 7.2 % (18.0-39.1); MEAN CORPUSCULAR HEMOGLOBIN 30.4 pg (28-32); MEAN CORPUSCULAR HGB CONC 33.2 g/dL (31-35); MEAN CORPUSCULAR VOLUME 91.4 fL (81-99); MONOCYTES # (AUTO) 1.8 (0.2-0.8); MONOCYTES % 11.3 % (4.4-11.3); NEUTROPHILS # (AUTO) 12.4 (2.1-6.9); NEUTROPHILS % 79.8 % (38.7-80.0); PLATELET COUNT 422 x10e3/uL (140-360); RED BLOOD COUNT 3.95 x10e6/uL (4.3-5.7); RED CELL DISTRIBUTION WIDTH 13.9 % (11.7-14.4)
[2022-03-16 12:12] LABS: INR 1.19; PARTIAL THROMBOPLASTIN TIME 39.3 seconds (23.8-35.5)
[2022-03-16 12:17] LABS: MAGNESIUM 1.1 MG/DL (1.3-2.1)
[2022-03-16 12:19] LABS: ALBUMIN/GLOBULIN RATIO 1.4 (0.8-2.0); ANION GAP 23.3 mmol/L (8-16); CALCIUM 8.5 mg/dL (8.4-10.2); CREATININE, SERUM 2.96 mg/dL (0.72-1.25); POTASSIUM 3.3 mmol/L (3.5-5.1)
[2022-03-16] MEDS ORDERED: MAGNESIUM SULFATE 2GM/50ML 50 ML IV ONE (12:30)
[2022-03-16 12:41] LABS: CLARITY,URINE CLEAR (CLEAR); COLOR,URINE YELLOW (YELLOW); KETONES,URINE TRACE (NEGATIVE); LEUKOCYTE ESTERASE ,URINE NEGATIVE (NEGATIVE); NITRITE,URINE NEGATIVE (NEGATIVE); PROTEIN,URINE DIPSTICK 1+ (NEGATIVE); URINE UROBILINOGEN 0.2 mg/dL (0.2 - 1)
[2022-03-16 12:49] LABS: RBC,URINE 0-5 /HPF (0-5)
[2022-03-16 12:50] LABS: BACTERIA,URINE MODERATE /HPF; EPITHELIAL CELLS,URINE MANY /LPF
[2022-03-16 12:53] LABS: HYALINE CASTS 0-1 (0-1)
[2022-03-16] MEDS: POTASSIUM CHLORIDE 10MEQ/100ML 100 ML IV SCH (13:00)
[2022-03-16] MEDS ORDERED: CEFTRIAXONE 1 GM VIAL IV ONE (14:15)
[2022-03-16] MEDS ORDERED: SODIUM CHLORIDE 0.9% IV ONE (14:15)
[2022-03-16 18:14] VITALS: BP 103/70
[2022-03-16 18:20] VITALS: BP 103/70
[2022-03-16 20:00] VITALS: BP 133/77
[2022-03-16 20:30] VITALS: BP 103/70
[2022-03-16] MEDS: SODIUM CHLORIDE 0.9% 1000ML 1,000 ML IV SCH (22:00)
[2022-03-16] MEDS: HEPARIN SOD (PORCINE) 5,000 UNIT/ML VIAL SC SCH (22:11)
[2022-03-17] VITALS (8 sets, daily range): BP systolic 108–139; BP diastolic 53–84
[2022-03-17] MEDS ORDERED: LYRICA100 MG PO (02:04)
[2022-03-17] MEDS ORDERED: TOPIRAMATE25 MG PO (02:04)
[2022-03-17] MEDS ORDERED: BUPROPION XL150 MG PO (02:04)
[2022-03-17] MEDS ORDERED: CHLORDIAZEPOXID25 MG PO (02:04)
[2022-03-17] MEDS ORDERED: PHENTERMINE H37.5 MG (02:04)
[2022-03-17] MEDS ORDERED: ATORVASTATIN CA40 MG PO (02:04)
[2022-03-17] MEDS ORDERED: ULTRAM 50MG50 MG PO (02:04)
[2022-03-17] MEDS ORDERED: LEVALBUTEROL TA15 GM (02:04)
[2022-03-17] MEDS ORDERED: ADVAIR 250-501 EACH INH (02:04)
[2022-03-17] MEDS ORDERED: FLUCONAZOLE100 MG PO (02:04)
[2022-03-17] MEDS ORDERED: FLONASE ALLERG9.9 ML INH (02:04)
[2022-03-17] MEDS ORDERED: LISINOPRIL10 MG PO (02:04)
[2022-03-17] MEDS: SODIUM CHLORIDE 0.9% 1000ML 1,000 ML IV SCH ×3 (05:26→20:06)
[2022-03-17 05:45] LABS: BASOPHILS % 0.4 % (0.0-1.0); HEMATOCRIT 28.4 % (38.2-49.6); LYMPHOCYTES # (AUTO) 0.9 (1.0-3.2); LYMPHOCYTES % 8.5 % (18.0-39.1); MEAN CORPUSCULAR HEMOGLOBIN 30.7 pg (28-32); MEAN CORPUSCULAR HGB CONC 35.2 g/dL (31-35); MEAN CORPUSCULAR VOLUME 87.1 fL (81-99); MONOCYTES # (AUTO) 1.5 (0.2-0.8); NEUTROPHILS # (AUTO) 8.2 (2.1-6.9); NEUTROPHILS % 75.9 % (38.7-80.0); PLATELET COUNT 336 x10e3/uL (140-360); RED BLOOD COUNT 3.26 x10e6/uL (4.3-5.7); RED CELL DISTRIBUTION WIDTH 14.2 % (11.7-14.4)
[2022-03-17 06:39] LABS: ALBUMIN 3.3 g/dL (3.5-5.0); ALBUMIN/GLOBULIN RATIO 1.1 (0.8-2.0); ANION GAP 20.2 mmol/L (8-16); CALCIUM 8.1 mg/dL (8.4-10.2); CREATININE, SERUM 1.43 mg/dL (0.72-1.25); MAGNESIUM 1.7 MG/DL (1.3-2.1)
[2022-03-17 06:44] LABS: POTASSIUM 2.2 mmol/L (3.5-5.1)
[2022-03-17] MEDS ORDERED: POTASSIUM CHLORIDE 10MEQ EA PO ONE (08:00)
[2022-03-17 08:10] LABS: THYROID STIMULATING HORMONE 0.589 uIU/mL (0.350-4.940)
[2022-03-17] MEDS: POTASSIUM CHLORIDE 10MEQ/100ML 100 ML IV SCH ×3 (08:31→12:41)
[2022-03-17] MEDS: HEPARIN SOD (PORCINE) 5,000 UNIT/ML VIAL SC SCH ×2 (08:36→20:10)
[2022-03-17] MEDS: ACETAMINOPHEN 325 MG TAB PO PRN (10:20)
[2022-03-17] MEDS ORDERED: KETOROLAC TROMETHAMINE 30 MG/ML VIAL IV ONE (12:00)
[2022-03-17] MEDS: ALBUTEROL SULFATE HFA 8GM INHALATION AEROSOL INH SCH ×2 (12:30→19:00)
[2022-03-17] MEDS: FAMOTIDINE 20 MG TAB PO SCH (13:38)
[2022-03-17] MEDS: TRAMADOL HCL 50 MG TAB PO PRN (13:46)
[2022-03-17] MEDS: DEXAMETHASONE SOD PHOS INJ 4 MG/ML SDV IV SCH ×2 (18:00→23:09)
[2022-03-17] MEDS: SALMETEROL/FLUTICASONE 250/50 INH SCH (19:00)
[2022-03-17] MEDS ORDERED: LACTATED RINGER'S 1,000 ML INJ ONE (20:45)
[2022-03-17] MEDS ORDERED: ENOXAPARIN 30 MG/0.3 ML SYR SC SCH (21:00)
[2022-03-18] VITALS (7 sets, daily range): BP systolic 150–163; BP diastolic 80–98
[2022-03-18] MEDS: ALBUTEROL SULFATE HFA 8GM INHALATION AEROSOL INH SCH ×4 (01:00→19:00)
[2022-03-18] MEDS: DEXAMETHASONE SOD PHOS INJ 4 MG/ML SDV IV SCH ×3 (05:21→16:36)
[2022-03-18 05:51] LABS: BASOPHILS % 0.2 % (0.0-1.0); HEMATOCRIT 30.4 % (38.2-49.6); HEMOGLOBIN 10.1 g/dL (14.0-18.0); LYMPHOCYTES # (AUTO) 0.4 (1.0-3.2); LYMPHOCYTES % 5.9 % (18.0-39.1); MEAN CORPUSCULAR HEMOGLOBIN 30.2 pg (28-32); MEAN CORPUSCULAR HGB CONC 33.2 g/dL (31-35); MONOCYTES # (AUTO) 0.3 (0.2-0.8); MONOCYTES % 3.8 % (4.4-11.3); NEUTROPHILS # (AUTO) 5.9 (2.1-6.9); NEUTROPHILS % 89.3 % (38.7-80.0); PLATELET COUNT 364 x10e3/uL (140-360); RED BLOOD COUNT 3.34 x10e6/uL (4.3-5.7)
[2022-03-18 06:05] LABS: INR 1.2; PROTHROMBIN TIME 15.4 seconds (11.9-14.5)
[2022-03-18 06:06] LABS: PARTIAL THROMBOPLASTIN TIME 46.3 seconds (23.8-35.5)
[2022-03-18 06:32] LABS: ALBUMIN 3.2 g/dL (3.5-5.0); ANION GAP 17.8 mmol/L (8-16); CALCIUM 8.4 mg/dL (8.4-10.2); CREATININE, SERUM 0.9 mg/dL (0.72-1.25); POTASSIUM 2.8 mmol/L (3.5-5.1)
[2022-03-18] MEDS: SALMETEROL/FLUTICASONE 250/50 INH SCH ×2 (07:00→19:00)
[2022-03-18] MEDS: FAMOTIDINE 20 MG TAB PO SCH (07:56)
[2022-03-18] MEDS: TRAMADOL HCL 50 MG TAB PO PRN ×2 (07:57→15:43)
[2022-03-18] MEDS: POTASSIUM CHLORIDE 20MEQ/100ML 100 ML IV SCH ×2 (08:50→13:13)
[2022-03-18] MEDS: CARVEDILOL 12.5 MG TAB PO SCH ×2 (08:52→16:36)
[2022-03-18] MEDS: LISINOPRIL 20 MG TAB PO SCH ×2 (08:53→20:15)
[2022-03-18] MEDS: HEPARIN SOD (PORCINE) 5,000 UNIT/ML VIAL SC SCH ×2 (08:54→20:16)
[2022-03-18] MEDS ORDERED: POTASSIUM CHLORIDE 20 MEQ TAB CR PO ONE ×2 (09:00→19:55)
[2022-03-18] MEDS ORDERED: ASPIRIN 325 MG TAB PO SCH (09:00)
[2022-03-18] MEDS ORDERED: SUMATRIPTAN SUCCINATE 25 MG TAB PO ONE (12:00)
[2022-03-18] MEDS ORDERED: SODIUM CHLORIDE 0.9% 250ML 250 ML ONE (12:31)
[2022-03-18 17:27] LABS: ANION GAP 16.4 mmol/L (8-16); CALCIUM 8.7 mg/dL (8.4-10.2); CREATININE, SERUM 0.85 mg/dL (0.72-1.25); POTASSIUM 3.4 mmol/L (3.5-5.1)
[2022-03-18] MEDS ORDERED: MAGNESIUM SULFATE 2GM/50ML 50 ML IV ONE (19:30)
[2022-03-18] MEDS: SODIUM CHLORIDE 0.9% 1000ML 1,000 ML IV SCH (19:37)
[2022-03-19] VITALS (8 sets, daily range): BP systolic 143–168; BP diastolic 88–99
[2022-03-19] MEDS: DEXAMETHASONE SOD PHOS INJ 4 MG/ML SDV IV SCH ×4 (00:38→15:51)
[2022-03-19] MEDS: ALBUTEROL SULFATE HFA 8GM INHALATION AEROSOL INH SCH ×4 (01:00→20:05)
[2022-03-19 06:15] LABS: HEMATOCRIT 30.6 % (38.2-49.6); HEMOGLOBIN 10.3 g/dL (14.0-18.0); LYMPHOCYTES # (AUTO) 0.5 (1.0-3.2); LYMPHOCYTES % 10.7 % (18.0-39.1); MEAN CORPUSCULAR HEMOGLOBIN 30.7 pg (28-32); MEAN CORPUSCULAR HGB CONC 33.7 g/dL (31-35); MEAN CORPUSCULAR VOLUME 91.1 fL (81-99); MONOCYTES # (AUTO) 0.4 (0.2-0.8); MONOCYTES % 7.1 % (4.4-11.3); NEUTROPHILS # (AUTO) 4.1 (2.1-6.9); NEUTROPHILS % 81.4 % (38.7-80.0); PLATELET COUNT 417 x10e3/uL (140-360); RED BLOOD COUNT 3.36 x10e6/uL (4.3-5.7); RED CELL DISTRIBUTION WIDTH 14.1 % (11.7-14.4)
[2022-03-19 06:39] LABS: ALBUMIN 3.2 g/dL (3.5-5.0); ALBUMIN/GLOBULIN RATIO 0.9 (0.8-2.0); ANION GAP 18.1 mmol/L (8-16); CALCIUM 8.7 mg/dL (8.4-10.2); CREATININE, SERUM 0.8 mg/dL (0.72-1.25); POTASSIUM 3.1 mmol/L (3.5-5.1)
[2022-03-19] MEDS: SALMETEROL/FLUTICASONE 250/50 INH SCH ×2 (07:00→20:05)
[2022-03-19 07:05] LABS: THYROID STIMULATING HORMONE 0.313 uIU/mL (0.350-4.940)
[2022-03-19] MEDS: LISINOPRIL 20 MG TAB PO SCH ×2 (08:24→21:44)
[2022-03-19] MEDS: FAMOTIDINE 20 MG TAB PO SCH (08:24)
[2022-03-19] MEDS: CARVEDILOL 12.5 MG TAB PO SCH ×2 (08:24→15:53)
[2022-03-19] MEDS ORDERED: POTASSIUM CHLORIDE 20MEQ/100ML 100 ML IV SCH (09:00)
[2022-03-19] MEDS ORDERED: REGADENOSON 0.4 MG/5 ML SYR IV ONE (09:15)
[2022-03-19] MEDS ORDERED: POTASSIUM CHLORIDE 20 MEQ TAB CR PO ONE (09:15)
[2022-03-19] MEDS ORDERED: POTASSIUM CHLORIDE 10MEQ EA PO ONE (11:00)
[2022-03-19] MEDS: HEPARIN SOD (PORCINE) 5,000 UNIT/ML VIAL SC SCH (11:24)
[2022-03-19] MEDS: SODIUM CHLORIDE 0.9% 1000ML 1,000 ML IV SCH (15:35)
[2022-03-19] MEDS: TRAMADOL HCL 50 MG TAB PO PRN (15:52)
[2022-03-19] MEDS ORDERED: MAGNESIUM SULFATE 2GM/50ML 50 ML IV ONE (17:30)
[2022-03-19] MEDS: POTASSIUM CHLORIDE 20 MEQ TAB CR PO SCH ×2 (17:48→21:44)
[2022-03-19] MEDS: ONDANSETRON HCL INJ 2MG/ML 2ML 2 MG/ML VIAL IV PRN (18:53)
[2022-03-19] MEDS: Morphine 4mg INJECTION 4 MG/ML INJ IV PRN (18:53)
[2022-03-19] MEDS ORDERED: KCL 40MEQ/0.9% SOD CHL 1,000 ML IV ONE (23:55)
[2022-03-20] MEDS: ALBUTEROL SULFATE HFA 8GM INHALATION AEROSOL INH SCH ×4 (01:00→19:00)
[2022-03-20] MEDS: POTASSIUM CHLORIDE 20 MEQ TAB CR PO SCH (02:06)
[2022-03-20 04:00] VITALS: BP 141/85
[2022-03-20 05:52] LABS: HEMOGLOBIN 10.4 g/dL (14.0-18.0); LYMPHOCYTES # (AUTO) 0.5 (1.0-3.2); LYMPHOCYTES % 10.5 % (18.0-39.1); MEAN CORPUSCULAR HEMOGLOBIN 30.4 pg (28-32); MEAN CORPUSCULAR HGB CONC 34.7 g/dL (31-35); MEAN CORPUSCULAR VOLUME 87.7 fL (81-99); MONOCYTES # (AUTO) 0.4 (0.2-0.8); MONOCYTES % 8.2 % (4.4-11.3); NEUTROPHILS # (AUTO) 4.1 (2.1-6.9); NEUTROPHILS % 80.1 % (38.7-80.0); PLATELET COUNT 421 x10e3/uL (140-360); RED BLOOD COUNT 3.42 x10e6/uL (4.3-5.7); RED CELL DISTRIBUTION WIDTH 14.3 % (11.7-14.4)
[2022-03-20] MEDS: DEXAMETHASONE SOD PHOS INJ 4 MG/ML SDV IV SCH ×4 (05:53→20:59)
[2022-03-20 06:11] LABS: INR 1.18; PROTHROMBIN TIME 15.2 seconds (11.9-14.5)
[2022-03-20 06:12] LABS: PARTIAL THROMBOPLASTIN TIME 36.9 seconds (23.8-35.5)
[2022-03-20 06:19] LABS: ANION GAP 14.6 mmol/L (8-16); CALCIUM 8.5 mg/dL (8.4-10.2); CREATININE, SERUM 0.77 mg/dL (0.72-1.25); POTASSIUM 4.6 mmol/L (3.5-5.1)
[2022-03-20 06:22] LABS: ALBUMIN 3.3 g/dL (3.5-5.0); BILIRUBIN,DIRECT 0.2 mg/dL (0.0-0.5)
[2022-03-20] MEDS: LEVALBUTEROL 15 GM AERO IH PRN ×2 (07:10→19:45)
[2022-03-20] MEDS: SALMETEROL/FLUTICASONE 250/50 INH SCH ×2 (07:10→19:45)
[2022-03-20] MEDS: FAMOTIDINE 20 MG TAB PO SCH (07:30)
[2022-03-20] MEDS ORDERED: Vancomycin IV 1 GM VIAL ONE (07:40)
[2022-03-20] MEDS ORDERED: THROMBIN FOR SOLN 5,000 UNIT VIAL ONE (07:40)
[2022-03-20] MEDS ORDERED: LIDOCAINE HCL/EPINEPHRINE/PF 10 ML VIAL ONE (07:40)
[2022-03-20] MEDS: ONDANSETRON HCL INJ 2MG/ML 2ML 2 MG/ML VIAL IV PRN ×2 (07:57→13:28)
[2022-03-20] MEDS: Morphine 4mg INJECTION 4 MG/ML INJ IV PRN ×2 (08:00→13:28)
[2022-03-20] MEDS: LISINOPRIL 20 MG TAB PO SCH ×2 (08:29→20:59)
[2022-03-20] MEDS: CARVEDILOL 12.5 MG TAB PO SCH ×2 (08:29→15:51)
[2022-03-20 08:33] VITALS: BP 148/83
[2022-03-20 09:45] VITALS: BP 148/83
[2022-03-20] MEDS ORDERED: HEPARIN SOD/SOD CHLORIDE 1,000 ML ONE (11:04)
[2022-03-20] MEDS ORDERED: ACETAMINOPHEN 1000 MG/100 ML 100 ML IV ONE (11:49)
[2022-03-20] MEDS ORDERED: ACETAMINOPHEN 325 MG TAB PO PRN (12:30)
[2022-03-20] MEDS ORDERED: PROMETHAZINE HCL (IM) 25 MG/ML VIAL IM PRN (12:30)
[2022-03-20] MEDS ORDERED: Morphine 4mg INJECTION 4 MG/ML INJ IM PRN (12:30)
[2022-03-20] MEDS ORDERED: HYDROMORPHONE 2MG/ML 2 MG/ML ML IV PRN (12:30)
[2022-03-20] MEDS ORDERED: ONDANSETRON HCL INJ 2MG/ML 2ML 2 MG/ML VIAL ONE (12:42)
[2022-03-20] MEDS ORDERED: SEVOFLURANE INHAL SOLN 250 ML PEN BTL ONE (12:42)
[2022-03-20] MEDS ORDERED: ROCURONIUM BROMIDE 10 MG/ML 5ML VIAL IV ONE (12:42)
[2022-03-20] MEDS ORDERED: PROPOFOL IV EMULSION 10 MG/ML 20 ML VIAL ONE (12:42)
[2022-03-20] MEDS ORDERED: POVIDONE IODINE 0.05% 0.05 % ML PO ONE (12:42)
[2022-03-20] MEDS ORDERED: DEXAMETHASONE SOD PHOS INJ 4 MG/ML SDV ONE (12:42)
[2022-03-20] MEDS ORDERED: NEOSTIGMINE 1 MG/ML 10ML VIAL ONE (12:42)
[2022-03-20] MEDS ORDERED: LIDOCAINE HCL 2% LOCAL INJ 5 ML SDV VIAL INJ ONE (12:42)
[2022-03-20] MEDS ORDERED: GLYCOPYRROLATE INJ 0.2 MG/ML VIAL ONE (12:42)
[2022-03-20] MEDS ORDERED: FENTANYL CITRATE/PF 100MCG/2 ML INJ ONE (13:15)
[2022-03-20] MEDS: LACTATED RINGER'S 1,000 ML IV SCH ×2 (13:16→20:59)
[2022-03-20] MEDS: OXYCODONE/ACETAMINOPHEN 5-325 1 EACH TABLET PO PRN ×2 (15:49→15:50)
[2022-03-20 16:17] VITALS: BP 152/96
[2022-03-20] MEDS: MAGNESIUM/ALUMINUM/SIMETHICONE 30 ML UDC PO PRN (19:57)
[2022-03-20 20:00] VITALS: BP 164/98
[2022-03-20 21:00] VITALS: BP 171/96
[2022-03-20] MEDS ORDERED: CLONIDINE HCL 0.1 MG TAB PO PRN (23:15)
[2022-03-20] MEDS ORDERED: DIPHENHYDRAMINE HCL 25 MG CAP PO PRN (23:15)
[2022-03-20] MEDS: TAMSULOSIN HCL 0.4 MG CAP PO SCH (23:37)
[2022-03-21] VITALS: BP 159/101
[2022-03-21] MEDS: ALBUTEROL SULFATE HFA 8GM INHALATION AEROSOL INH SCH ×4 (01:00→19:00)
[2022-03-21] MEDS: DEXAMETHASONE SOD PHOS INJ 4 MG/ML SDV IV SCH ×3 (05:33→22:19)
[2022-03-21] MEDS: LACTATED RINGER'S 1,000 ML IV SCH ×3 (05:33→22:20)
[2022-03-21 05:50] LABS: BASOPHILS % 0.1 % (0.0-1.0); HEMATOCRIT 29.4 % (38.2-49.6); LYMPHOCYTES % 13.7 % (18.0-39.1); MEAN CORPUSCULAR VOLUME 88.3 fL (81-99); MONOCYTES # (AUTO) 0.9 (0.2-0.8); MONOCYTES % 12.2 % (4.4-11.3); NEUTROPHILS # (AUTO) 5.3 (2.1-6.9); NEUTROPHILS % 73.2 % (38.7-80.0); PLATELET COUNT 388 x10e3/uL (140-360); RED BLOOD COUNT 3.33 x10e6/uL (4.3-5.7); RED CELL DISTRIBUTION WIDTH 14.3 % (11.7-14.4)
[2022-03-21 06:32] LABS: ANION GAP 14.9 mmol/L (8-16); CALCIUM 8.4 mg/dL (8.4-10.2); CREATININE, SERUM 0.76 mg/dL (0.72-1.25); POTASSIUM 3.9 mmol/L (3.5-5.1)
[2022-03-21 06:50] LABS: ALBUMIN 2.6 g/dL (3.5-5.0); BILIRUBIN,DIRECT 0.3 mg/dL (0.0-0.5)
[2022-03-21] MEDS: SALMETEROL/FLUTICASONE 250/50 INH SCH ×2 (07:00→19:00)
[2022-03-21] MEDS: LISINOPRIL 20 MG TAB PO SCH ×2 (08:57→22:19)
[2022-03-21] MEDS: FAMOTIDINE 20 MG TAB PO SCH (08:57)
[2022-03-21] MEDS: ONDANSETRON HCL INJ 2MG/ML 2ML 2 MG/ML VIAL IV PRN (08:58)
[2022-03-21] MEDS: CARVEDILOL 12.5 MG TAB PO SCH ×2 (08:58→16:26)
[2022-03-21] MEDS: OXYCODONE/ACETAMINOPHEN 5-325 1 EACH TABLET PO PRN ×2 (09:02→17:55)
[2022-03-21 09:07] VITALS: BP 126/64
[2022-03-21 09:31] VITALS: BP 126/64
[2022-03-21] MEDS: MAGNESIUM/ALUMINUM/SIMETHICONE 30 ML UDC PO PRN (10:33)
[2022-03-21] MEDS: PANTOPRAZOLE SOD 40 MG TABEC PO SCH (11:41)
[2022-03-21 12:31] VITALS: BP 141/95
[2022-03-21] MEDS: THIAMINE HCL 100 MG TAB PO SCH (16:25)
[2022-03-21] MEDS: SUCRALFATE 1 GM/10 ML SUSP NG SCH ×2 (16:25→22:18)
[2022-03-21 16:58] VITALS: BP 135/77
[2022-03-21 20:20] VITALS: BP 135/77
[2022-03-21] MEDS ORDERED: TEMAZEPAM 15 MG CAP PO PRN (21:00)
[2022-03-21] MEDS: TAMSULOSIN HCL 0.4 MG CAP PO SCH (22:18)
[2022-03-22] VITALS (7 sets, daily range): BP systolic 140–186; BP diastolic 85–115
[2022-03-22] MEDS: ALBUTEROL SULFATE HFA 8GM INHALATION AEROSOL INH SCH ×4 (01:00→20:40)
[2022-03-22] MEDS: LEVALBUTEROL 15 GM AERO IH PRN ×2 (06:36→17:17)
[2022-03-22] MEDS: DEXAMETHASONE SOD PHOS INJ 4 MG/ML SDV IV SCH (06:48)
[2022-03-22] MEDS: LACTATED RINGER'S 1,000 ML IV SCH (06:48)
[2022-03-22] MEDS: SALMETEROL/FLUTICASONE 250/50 INH SCH ×2 (07:00→20:40)
[2022-03-22] MEDS: PANTOPRAZOLE SOD 40 MG TABEC PO SCH (08:44)
[2022-03-22] MEDS: FAMOTIDINE 20 MG TAB PO SCH (08:44)
[2022-03-22] MEDS: THIAMINE HCL 100 MG TAB PO SCH (08:44)
[2022-03-22] MEDS: SUCRALFATE 1 GM/10 ML SUSP NG SCH ×4 (08:44→20:27)
[2022-03-22] MEDS: CARVEDILOL 12.5 MG TAB PO SCH ×3 (08:45→20:27)
[2022-03-22] MEDS: LISINOPRIL 20 MG TAB PO SCH ×2 (08:45→20:27)
[2022-03-22] MEDS: OXYCODONE/ACETAMINOPHEN 5-325 1 EACH TABLET PO PRN ×2 (11:04→15:35)
[2022-03-22] MEDS: TAMSULOSIN HCL 0.4 MG CAP PO SCH (20:27)
[2022-03-22] MEDS: MELATONIN 5 MG TABLET PO PRN (21:20)
[2022-03-23] VITALS (7 sets, daily range): BP systolic 124–162; BP diastolic 85–98
[2022-03-23] MEDS: ACETAMINOPHEN 325 MG TAB PO PRN (00:30)
[2022-03-23] MEDS: ALBUTEROL SULFATE HFA 8GM INHALATION AEROSOL INH SCH ×4 (00:45→19:10)
[2022-03-23] MEDS: OXYCODONE/ACETAMINOPHEN 5-325 1 EACH TABLET PO PRN (04:50)
[2022-03-23] MEDS: SALMETEROL/FLUTICASONE 250/50 INH SCH ×2 (08:05→19:10)
[2022-03-23] MEDS: LEVALBUTEROL 15 GM AERO IH PRN (08:06)
[2022-03-23] MEDS: PANTOPRAZOLE SOD 40 MG TABEC PO SCH (08:51)
[2022-03-23] MEDS: FAMOTIDINE 20 MG TAB PO SCH (08:51)
[2022-03-23] MEDS: SUCRALFATE 1 GM/10 ML SUSP NG SCH ×4 (08:51→21:00)
[2022-03-23] MEDS: THIAMINE HCL 100 MG TAB PO SCH (08:52)
[2022-03-23] MEDS: CARVEDILOL 12.5 MG TAB PO SCH ×2 (08:52→17:07)
[2022-03-23] MEDS: LISINOPRIL 20 MG TAB PO SCH ×2 (08:52→21:00)
[2022-03-23] MEDS: DEXAMETHASONE 4 MG TAB PO SCH ×2 (08:53→17:07)
[2022-03-23 09:09] LABS: BASOPHILS % 0.1 % (0.0-1.0); EOSINOPHILS # (AUTO) 0.2 (0.0-0.4); EOSINOPHILS % 1.7 % (0.0-6.0); HEMATOCRIT 35.9 % (38.2-49.6); LYMPHOCYTES # (AUTO) 1.8 (1.0-3.2); LYMPHOCYTES % 18.1 % (18.0-39.1); MEAN CORPUSCULAR HEMOGLOBIN 30.3 pg (28-32); MEAN CORPUSCULAR HGB CONC 33.4 g/dL (31-35); MEAN CORPUSCULAR VOLUME 90.7 fL (81-99); MONOCYTES # (AUTO) 1.4 (0.2-0.8); MONOCYTES % 14.4 % (4.4-11.3); NEUTROPHILS # (AUTO) 6.1 (2.1-6.9); NEUTROPHILS % 62.8 % (38.7-80.0); PLATELET COUNT 367 x10e3/uL (140-360); RED BLOOD COUNT 3.96 x10e6/uL (4.3-5.7); RED CELL DISTRIBUTION WIDTH 13.5 % (11.7-14.4)
[2022-03-23 09:29] LABS: ANION GAP 17.1 mmol/L (8-16); CALCIUM 8.4 mg/dL (8.4-10.2); CREATININE, SERUM 0.74 mg/dL (0.72-1.25); POTASSIUM 3.1 mmol/L (3.5-5.1)
[2022-03-23] MEDS: ACETAMIN/BUTALBITAL/CAFFEINE TAB PO PRN ×2 (10:59→21:15)
[2022-03-23] MEDS ORDERED: DOCUSATE SODIUM LIQD 100 MG/10 ML UDC NG ONE (11:00)
[2022-03-23] MEDS ORDERED: POTASSIUM CHLORIDE 20 MEQ TAB CR PO ONE (11:00)
[2022-03-23] MEDS ORDERED: LACTULOSE SYRUP 20 GM/30 ML UDC PO ONE (11:00)
[2022-03-23] MEDS ORDERED: ONDANSETRON HCL INJ 2MG/ML 2ML 2 MG/ML VIAL IV PRN (15:30)
[2022-03-23] MEDS ORDERED: KETOROLAC TROMETHAMINE 30 MG/ML VIAL IV ONE (16:00)
[2022-03-23] MEDS: SODIUM CHLORIDE 1 GM TAB PO SCH ×2 (17:00→17:07)
[2022-03-23] MEDS: TAMSULOSIN HCL 0.4 MG CAP PO SCH (21:00)
[2022-03-23] MEDS: MELATONIN 5 MG TABLET PO PRN (21:15)
[2022-03-24] VITALS: BP 146/78
[2022-03-24] MEDS: ALBUTEROL SULFATE HFA 8GM INHALATION AEROSOL INH SCH ×3 (00:20→13:00)
[2022-03-24] MEDS: ACETAMIN/BUTALBITAL/CAFFEINE TAB PO PRN (03:47)
[2022-03-24 05:11] VITALS: BP 151/80
[2022-03-24 05:57] LABS: BASOPHILS % 0.2 % (0.0-1.0); EOSINOPHILS # (AUTO) 0.1 (0.0-0.4); EOSINOPHILS % 0.5 % (0.0-6.0); HEMATOCRIT 35.3 % (38.2-49.6); HEMOGLOBIN 11.9 g/dL (14.0-18.0); LYMPHOCYTES # (AUTO) 1.9 (1.0-3.2); LYMPHOCYTES % 14.6 % (18.0-39.1); MEAN CORPUSCULAR HEMOGLOBIN 30.7 pg (28-32); MEAN CORPUSCULAR HGB CONC 33.7 g/dL (31-35); MONOCYTES # (AUTO) 1.5 (0.2-0.8); MONOCYTES % 11.2 % (4.4-11.3); NEUTROPHILS # (AUTO) 9.3 (2.1-6.9); NEUTROPHILS % 70.2 % (38.7-80.0); PLATELET COUNT 356 x10e3/uL (140-360); RED BLOOD COUNT 3.88 x10e6/uL (4.3-5.7); RED CELL DISTRIBUTION WIDTH 13.6 % (11.7-14.4)
[2022-03-24 06:42] LABS: ANION GAP 19.9 mmol/L (8-16); CALCIUM 8.2 mg/dL (8.4-10.2); CREATININE, SERUM 0.72 mg/dL (0.72-1.25)
[2022-03-24 06:46] LABS: POTASSIUM 2.9 mmol/L (3.5-5.1)
[2022-03-24] MEDS: SALMETEROL/FLUTICASONE 250/50 INH SCH (07:17)
[2022-03-24] MEDS: LEVALBUTEROL 15 GM AERO IH PRN (07:18)
[2022-03-24] MEDS ORDERED: POTASSIUM CHLORIDE 20 MEQ TAB CR PO ONE ×2 (08:00→13:00)
[2022-03-24 08:29] VITALS: BP 143/90
[2022-03-24 08:39] VITALS: BP 143/90
[2022-03-24] MEDS: LISINOPRIL 20 MG TAB PO SCH (08:55)
[2022-03-24] MEDS: THIAMINE HCL 100 MG TAB PO SCH (08:55)
[2022-03-24] MEDS: SUCRALFATE 1 GM/10 ML SUSP NG SCH ×2 (08:55→11:30)
[2022-03-24] MEDS: DEXAMETHASONE 4 MG TAB PO SCH (08:56)
[2022-03-24] MEDS: SODIUM CHLORIDE 1 GM TAB PO SCH (08:56)
[2022-03-24] MEDS: FAMOTIDINE 20 MG TAB PO SCH (08:56)
[2022-03-24] MEDS: PANTOPRAZOLE SOD 40 MG TABEC PO SCH (08:56)
[2022-03-24] MEDS: CARVEDILOL 12.5 MG TAB PO SCH (08:57)
[2022-03-24 11:57] VITALS: BP 153/82
[2022-03-24] MEDS ORDERED: MAGNESIUM SULFATE 2GM/50ML 50 ML IV ONE (12:00)
[2022-03-24] MEDS ORDERED: FLOMAX0.4 MG PO (12:49)
[2022-03-24] MEDS ORDERED: COREG12.5 MG PO (12:49)
[2022-03-24] MEDS ORDERED: Oxycodone/Acetaminophen 5-325 PO (12:49)
[2022-03-24] MEDS ORDERED: DEXAMETHASONE4 MG PO (12:51)
[2022-03-24] MEDS ORDERED: ONDANSETRON HCL 4 MG ORAL DISINTEGRATING TAB PO PRN (13:15)
[2022-03-24 16:05] VITALS: BP 134/89
== END 2022-03-24 17:51 | DRG 471 ==
LOC: ER 11:46 → ERHOLD 14:12 → MED/SURG3 18:05
PROVIDERS: ADMIT Internal Medicine; ATTEND Internal Medicine
PROC: 0RT30ZZ Resection of Cervical Vertebral Disc, Open Approach (ICD-10-PCS; 2022-03-20)
PROC: 01N10ZZ Release Cervical Nerve, Open Approach (ICD-10-PCS; 2022-03-20)
PROC: 07DR0ZZ Extraction of Iliac Bone Marrow, Open Approach (ICD-10-PCS; 2022-03-20)
PROC: 0RG20K0 Fusion of 2 or more Cervical Vertebral Joints with Nonautologous Tissue Substitute, Anterior Approach, Anterior Column, Open Approach (ICD-10-PCS; principal; 2022-03-20 10:55)
DX: M50.020 Cervical disc disorder with myelopathy, mid-cervical region, unspecified level (principal); N17.0 Acute kidney failure with tubular necrosis; E87.1 Hypo-osmolality and hyponatremia; M62.82 Rhabdomyolysis; N13.30 Unspecified hydronephrosis; F10.230 Alcohol dependence with withdrawal, uncomplicated; I10 Essential (primary) hypertension; G89.29 Other chronic pain; N40.1 Benign prostatic hyperplasia with lower urinary tract symptoms; R33.8 Other retention of urine; M48.061 Spinal stenosis, lumbar region without neurogenic claudication; E86.0 Dehydration; M48.02 Spinal stenosis, cervical region; E78.5 Hyperlipidemia, unspecified; M15.0 Primary generalized (osteo)arthritis; R26.89 Other abnormalities of gait and mobility; J45.909 Unspecified asthma, uncomplicated; E78.00 Pure hypercholesterolemia, unspecified; E87.6 Hypokalemia; Z20.822 Contact with and (suspected) exposure to COVID-19; Y90.0 Blood alcohol level of less than 20 mg/100 ml; Z86.73 Personal history of transient ischemic attack (TIA), and cerebral infarction without residual deficits
CPT/HCPCS: 36415; 70450; 71045; 72050; 72141; 72146; 72148; 76000; 76700; 76770; 78452; 80048; 80053; 80061; 80076; 80320; 81001; 82140; 82550; 82948; 83605; 83735; 84132; 84443; 84484; 85025; 85610; 85730; 86850; 86900; 87400; 88304; 88311; 93005; 93017; 93306; 93880; 94664; 94799; 99284; A9502; C1713; J0690; J0696; J1100; J1644; J1885; J2001; J2270; J2405; J2550; J2710; J3010; J3370; J3411; J3475; J3480; J7030; J7050; J7121